=== PATIENT | female | born 1980 | race Asian ===

== ENCOUNTER → 2018-04-16 09:32 | Outpatient (CLI) | payer OTHER, SELFPAY | PROVIDERS: PCP Internal Medicine | DX: Z23 Encounter for immunization (principal) | CPT/HCPCS: 90471; 90686 ==

== ENCOUNTER → 2019-04-29 15:46 | Outpatient (CLI) | payer OTHER, SELFPAY | PROVIDERS: PCP Internal Medicine | DX: Z23 Encounter for immunization (principal) | CPT/HCPCS: 90471; 90686 ==

== ENCOUNTER → 2020-04-13 19:34 | Outpatient (CLI) | payer OTHER, SELFPAY | PROVIDERS: PCP Internal Medicine; Referring Provider Internal Medicine; Visit Provider Internal Medicine | DX: Z23 Encounter for immunization (principal) | CPT/HCPCS: 90471; 90686 ==

== ENCOUNTER → 2020-07-15 16:30 | Outpatient (CLI) | payer OTHER, SELFPAY ==
[2020-07-15] MEDS: COVID-19 VACC(MODERNA-1)/PF 100 MCG/0.5 ML VIAL IM (16:34)
== END ==
PROVIDERS: PCP Internal Medicine; Visit Provider Internal Medicine
DX: Z23 Encounter for immunization (principal)
CPT/HCPCS: 0011A; 91301

== ENCOUNTER → 2020-08-13 14:22 | Outpatient (CLI) | payer OTHER, SELFPAY ==
[2020-08-13] MEDS: COVID-19 VACC #2, MRNA(MOD) 100 MCG/0.5 ML VIAL IM (14:25)
== END ==
PROVIDERS: PCP Internal Medicine; Visit Provider Internal Medicine
DX: Z23 Encounter for immunization (principal)
CPT/HCPCS: 0012A; 91301

== ENCOUNTER 2020-12-28 07:51 | Emergency (ER) | payer OTHER, SELFPAY ==
[2020-12-28 07:59] VITALS: BP 126/78; PULSE 103; RESP 22; TEMP 36.1; O2SAT 100; BMI 23.2
--- NOTE | 2020-12-28 08:08 | ED_ITS ---
HPI - Abdominal Pain General Chief Complaint: Abdominal Pain Stated Complaint: stomach pain for 2wks, sent by [facility] Time Seen by Provider: 12/28/20 08:02 Source: patient Mode of arrival: Ambulatory Limitations: no limitations History of Present Illness HPI narrative: Patient complains of reproducible epigastric pain that radiates to mid back. Occasional nausea and vomiting. Worse with eating at nighttime and worse after eating. Worse with fried foods. No chest pain. No urinary complaints. No bloody stools or emesis. Urinalysis completed at urgent care prior to arrival. Reviewed results. No acute findings MD complaint: abdominal pain Related Data Previous Rx's Medication Instructions Recorded clobetasol 0 TOPICAL QDAY #15 gm 10/03/17 pantoprazole [Protonix] 40 mg PO DAILY #14 tab 12/28/20 sucralfate [Carafate] 1 g PO BID #14 tab 12/28/20 Allergies Allergy/AdvReac Type Severity Reaction Status Date / Time No Known Drug Allergies Allergy Unverified 12/28/20 07:46 Review of Systems Review of Systems Narrative: GENERAL: Denies chills, fatigue, malaise, fever, sweats. HEENT: Denies sinus pain, ear pain, sore throat RESPIRATORY: Denies dyspnea, cough CARDIOVASCULAR: Denies chest pain, palpitations GASTROINTESTINAL: Complaint nausea, vomiting, abdominal pain : Denies dysuria, frequency, hematuria MUSCULOSKELETAL: denies muscle or bony pain SKIN: Denies rash, skin lesions NEUROLOGIC: Denies weakness, numbness ROS Unobtainable: All systems reviewed & are unremarkable except as noted in HPI and below Patient History Family History Brother Age: 36 Kidney infection Father Essential hypertension Cerebrovascular accident (CVA), unspecified Grandmother Age: 92 Ovarian cancer, unspecified laterality Mother Age: 61 Anemia, unspecified anemia type Grandfather Age: 85 Arthritis Grandmother Age: 83 Essential hypertension Sister Age: 33 Kidney infection Urinary tract infection, site unspecified Social History Smoking Status: Former smoker Smoking Status: Former smoker alcohol intake frequency: holidays/special occasions only Substance Use Type: does not use Exam Narrative Exam Narrative: GENERAL: in no distress, not toxic not dyspneic HEAD: Normocephalic. EYES: Pupils equal round No scleral icterus. No injection no discharge ENT: Mucous membranes moist. NECK: Trachea midline. CARDIOVASCULAR: Regular rate and rhythm without murmurs RESPIRATORY: Clear to auscultation. Breath sounds equal bilaterally. No wheezes, rales, or rhonchi. GASTROINTESTINAL: Abdomen soft, mild epigastric tenderness EXTREMITIES: No gross deformities. BACK: No flank tenderness. NEURO: AOx4. SKIN: Warm and dry PSYCH: Not anxious, is cooperative Initial Vital Signs Initial Vital Signs: Vital Signs Temperature 97 F L 12/28/20 07:59 Pulse Rate 103 H 12/28/20 07:59 Respiratory Rate 22 12/28/20 07:59 Blood Pressure 126/78 12/28/20 07:59 Pulse Oximetry 100 12/28/20 07:59 Course Course Course Narrative: No new issues during course of stay. Orders Ordered: ED Orders 12/28/20 08:06 US abdomen limited Stat EKG-12 Lead Stat 12/28/20 09:01 Complete Blood Count AUTO DIFF Stat Comprehensive Metabolic Panel Stat Lipase Stat Troponin & CK Cardiac Panel Stat Discontinued Medications Pantoprazole Sodium (Pantoprazole 40 Mg Vial) 40 mg IV NOW ONE Stop: 12/28/20 08:25 Last Admin: 12/28/20 10:08 Dose: 40 mg Documented by: KIRA Reevaluation(s) Reevaluation #1: Patient remains pain free. No nausea vomiting. Reviewed results with patient and agrees with treatment plan and follow-up for outpatient HIDA scan and new medication and dietary changes Pain-free during course of stay. Exam and imaging and lab results reassuring. Patient not toxic at discharge. Time: 10:10 Vital Signs Vital signs: Vital Signs - 8 hr 12/28/20 10:40 Pulse Rate 79 Respiratory Rate 14 Blood Pressure 126/78 Pulse Oximetry 99 MDM - Abdominal Pain Differential Diagnosis Differential diagnosis: Likely abdominal pain, acute appendicitis, diverticulitis, gastroenteritis, pancreatitis and other (Cholecystitis) Lab Data Attestation: I reviewed the patient's lab results. Result diagrams: 12/28/20 09:01 12/28/20 09:01 Labs: Lab Results 12/28/20 12/28/20 12/28/20 Range/Units 09:01 09:01 09:01 WBC 5.9 (4.5-11.0) X10^3/uL RBC 4.29 (4.0-5.2) X10^6/uL Hgb 11.5 L (12.0-16.0) g/dL Hct 35.8 L (36-46) % MCV 83.4 (80-100) fL MCH 26.7 (26-34) PG MCHC 32.0 (30-36) % RDW 14.3 (11.6-14.8) % Plt Count 273 (150-400) X10^3/uL Neut % (Auto) 68.9 (50-75) % Lymph % (Auto) 23.9 L (25-40) % [place] % (Auto) 5.3 (3-14) % Eos % (Auto) 0.8 L (2-4) % Baso % (Auto) 1.1 (0-2) % Neut # (Auto) 4100 (2458-0522) /uL Lymph # (Auto) 1400 (6452-0472) /uL [place] # (Auto) 300 (0-900) /uL Eos # (Auto) 0 (0-450) /uL Baso # (Auto) 100 (0-100) /uL Sodium 138 (137-145) mmol/L Potassium 4.3 (3.4-5.1) mmol/L Chloride 105 (98-107) mmol/L Carbon Dioxide 25 (22-32) mmol/L BUN 12 (7-17) mg/dL Creatinine 0.65 (0.52-1.04) mg/dL Estimated GFR > 60.0 (>60) mL/min BUN/Creatinine Ratio 18.5 (6-22) Glucose 92 (70-100) mg/dL Calcium 9.0 (8.4-10.2) mg/dL Total Bilirubin 0.5 (0.2-1.3) mg/dL AST 25 (14-36) IU/L ALT 11 (<35) IU/L Alkaline Phosphatase 62 (38-126) U/L Total Creatine Kinase 50 (30-135) U/L CK-MB (CK-2) TNP CK-MB (CK-2) Rel Index TNP Troponin I < 0.012 (0.01-0.034) ng/mL Total Protein 7.3 (6.3-8.2) g/dL Albumin 4.0 (3.5-5.0) g/dL Globulin 3.3 (1.7-4.1) g/dL Albumin/Globulin Ratio 1.2 (1.0-2.8) Lipase 60 (23-300) U/L Imaging Data US - abdomen: Radiologist's Impression: [address] [id number] ReportSigned Patient: Lady Autumn Patterson MMR#: [id number]: 1980Acct:[id number]/Sex: 40 / FDate of Service: 12/28/20[facility] [place] Number: [id number] Procedure: US abdomen limited Ordering Provider: Johan Shane MD PROCEDURE: US ABDOMEN LIMITED INDICATIONS: EPIGASTRIC PAIN TECHNIQUE: Real-time focused scanning was performed of the abdomen, with image documentation. COMPARISON: None. FINDINGS: Liver is normal in size and echotexture. No gallstones. No gallbladder wall thickening, pericholecystic fluid or sonographic Marshall's sign.common bile duct measures 2.2 mm. Pancreas is obscured by overlying bowel gas. Visualized right kidney is normal without hydronephrosis.. IMPRESSION: Normal limited abdominal ultrasound. No gallstones or ultrasound finding to suggest acute cholecystitis. Pancreas is obscured by overlying bowel gas. Dictated by: Debo De Santiago M.D. on 12/28/2020 at 8:40 Approved by: Debo De Santiago M.D. on 12/28/2020 at 8:42 ECG Data Attestation: I personally reviewed and interpreted this ECG as follows: Interpretation: Normal sinus rhythm, no ST elevation or depression. Rate 95 MDM Narrative Medical decision making narrative: Appropriate for discharge home. Exam and laboratory studies and imaging reassuring. Patient understands needs balance a workup for gallbladder including HIDA scan with outpatient with family doctor. Currently pain-free and not toxic. She desires discharge plan and treatment plan and prescriptions. Dietary changes no fried fatty greasy foods or spicy foods. Discharge Plan Departure Patient Disposition: Home Clinical Impression: Abdominal pain Qualifiers: Abdominal location: epigastric Qualified Code(s): R10.13 - Epigastric pain Instructions: DI for Abdominal Pain-Adult Activity Restrictions/Additional Instructions: No fried fatty greasy foods or spicy foods. See family doctor within a week for recheck and to schedule HIDA scan for the gallbladder. Prescriptions have been sent to [facility]. Return if worse or any questions or concerns Prescriptions: New pantoprazole [Protonix] 40 mg tablet,delayed release (DR/EC) 40 mg PO DAILY Qty: 14 RF: 0 sucralfate [Carafate] 1 gram tablet 1 g PO BID Qty: 14 RF: 0 No Action clobetasol 0.05 % ointment 0 Topical QDAY Qty: 15 RF: 1 Referrals: Niki Cleaning ARNP [Primary Care Provider] -
[2020-12-28 09:08] LABS: Add Manual Diff / Slide Review NO; Basophils Absolute Auto 100 /uL (0-100); Basophils Percent Auto 1.1 % (0-2); Eosinophils Absolute Auto 0 /uL (0-450); Eosinophils Percent Auto 0.8 % (2-4); Hematocrit 35.8 % (36-46); Hemoglobin 11.5 g/dL (12.0-16.0); Lymphocytes Absolute Auto 1400 /uL (1100-4500); Lymphocytes Percent Auto 23.9 % (25-40); Mean Corpuscular Hemoglobin 26.7 PG (26-34); Mean Corpuscular Volume 83.4 fL (80-100); Monocytes Absolute Auto 300 /uL (0-900); Monocytes Percent Auto 5.3 % (3-14); Neutrophils Absolute Auto 4100 /uL (1500-7000); Neutrophils Percent Auto 68.9 % (50-75); Platelet Count 273 X10^3/uL (150-400); Red Blood Cell Count 4.29 X10^6/uL (4.0-5.2); Red Cell Distribution Width 14.3 % (11.6-14.8); White Blood Cell Count 5.9 X10^3/uL (4.5-11.0)
[2020-12-28 09:20] LABS: Alanine Aminotransferase 11 IU/L (<35); Albumin Globulin Ratio 1.2 (1.0-2.8); Alkaline Phosphatase 62 U/L (38-126); Aspartate Aminotransferase 25 IU/L (14-36); BUN Creatinine Ratio 18.5 (6-22); Bilirubin Total 0.5 mg/dL (0.2-1.3); Blood Urea Nitrogen 12 mg/dL (7-17); Carbon Dioxide 25 mmol/L (22-32); Chloride 105 mmol/L (98-107); Estimated Glomerular Filt Rate > 60.0 mL/min (>60); Globulin 3.3 g/dL (1.7-4.1); Glucose 92 mg/dL (70-100); HEMOLYSIS < 15 (0-50); Lipase 60 U/L (23-300); Potassium 4.3 mmol/L (3.4-5.1); Sodium 138 mmol/L (137-145); Total Protein 7.3 g/dL (6.3-8.2)
[2020-12-28 09:21] LABS: Creatine Kinase 50 U/L (30-135)
[2020-12-28 09:32] LABS: Troponin I < 0.012 ng/mL (0.01-0.034)
[2020-12-28] MEDS: PANTOPRAZOLE 40 MG VIAL IV (10:08)
[2020-12-28 10:40] VITALS: BP 126/78; PULSE 79; RESP 14; O2SAT 99
== END 2020-12-28 10:41 | disposition home or self-care (01) ==
PROVIDERS: Emergency Provider Emergency Medicine; PCP Internal Medicine
DX: R10.13 Epigastric pain (principal); R11.2 Nausea with vomiting, unspecified
CPT/HCPCS: 76705; 80053; 82550; 83690; 84484; 85025; 93005; 93010; 96374; 99283; 99284; C9113

== ENCOUNTER → 2021-04-19 | Outpatient (CLI) | payer OTHER, SELFPAY | PROVIDERS: PCP Internal Medicine; Referring Provider Internal Medicine; Visit Provider Internal Medicine | DX: Z23 Encounter for immunization (principal) | CPT/HCPCS: 90471; 90686 ==

== ENCOUNTER → 2021-05-20 15:21 | Outpatient (CLI) | payer OTHER, SELFPAY ==
[2021-05-20] MEDS: COVID-19 VACC #3, MRNA(MOD) 50 MCG/0.25 ML VIAL IM (15:28)
== END ==
PROVIDERS: PCP Internal Medicine; Visit Provider Internal Medicine
DX: Z23 Encounter for immunization (principal)
CPT/HCPCS: 0013A; 91301

== ENCOUNTER → 2022-05-19 13:46 | Outpatient (CLI) | payer OTHER, SELFPAY | PROVIDERS: PCP Internal Medicine; Referring Provider Internal Medicine; Visit Provider Internal Medicine | DX: Z23 Encounter for immunization (principal) | CPT/HCPCS: 90471; 90686 ==

== ENCOUNTER → 2023-04-05 07:19 | Outpatient (CLI) | payer OTHER, SELFPAY ==
--- NOTE | 2023-04-05 | DI.MG.S_ITS ---
BILATERAL DIGITAL SCREENING MAMMOGRAM 3D/2D WITH CAD: 04/05/2023 CLINICAL: Baseline exam. Baseline exam. Routine screening. No prior exams were available for comparison. Both breasts are extremely dense, which lowers the sensitivity of mammography (category d />75% glandular tissue). Current study was also evaluated with a Computer Aided Detection (CAD) system. No significant masses, calcifications, or other findings are seen in either breast. IMPRESSION: NEGATIVE There is no mammographic evidence of malignancy. A 1 year screening mammogram is recommended. Based on the Tyrer Cuzick model (a risk assessment model) the patient's lifetime risk is 19.5% and her 10 year risk is 2.5%. According to the ACR, ACS, and NCCN guidelines, an annual breast MRI exam along with mammogram is recommended if the patient's lifetime risk is 20% or greater. This exam was interpreted at Station ID: [id number]. NOTE: For mammograms, a report in lay terms will be sent to the patient. Approximately 15% of breast malignancies will not be visualized mammographically. In the management of a palpable breast mass, a negative mammogram must not discourage biopsy of a clinically suspicious lesion. Electronically Signed By: Donn perez/lily:04/05/2023 08:54:32 letter sent: Normal Exam ACR BI-RADS Category 1: Negative [id number]
== END ==
PROVIDERS: PCP Internal Medicine; Referring Provider Internal Medicine; Visit Provider Internal Medicine
DX: Z12.31 Encounter for screening mammogram for malignant neoplasm of breast (principal)
CPT/HCPCS: 77063; 77067

== ENCOUNTER → 2023-05-18 08:09 | Outpatient (CLI) | payer OTHER, SELFPAY | PROVIDERS: PCP Internal Medicine; Referring Provider Family Medicine; Visit Provider Family Medicine | DX: Z23 Encounter for immunization (principal) | CPT/HCPCS: 90471; 90686 ==

== ENCOUNTER → 2024-05-20 09:26 | Outpatient (CLI) | payer OTHER, SELFPAY | PROVIDERS: PCP Internal Medicine; Visit Provider Physician Assistant Surgical | DX: R30.0 Dysuria (principal) | CPT/HCPCS: 87077; 87086; 87186 ==